=== PATIENT | female | born 1950 | race Caucasian/White ===

== ENCOUNTER → 2017-12-29 | Outpatient (CLI) | payer MEDICARE, MEDICAID ==
[~2017-12-29] MED LIST: DIATR MEGLU/DIATRIZOATE SOLN 120ML ONE
== END | disposition home or self-care (01) ==
LOC: RAD 09:22
PROVIDERS: ATTEND Surgery
DX: K57.30 Diverticulosis of large intestine without perforation or abscess without bleeding (principal)
CPT/HCPCS: 74270; Q9963

== ENCOUNTER 2018-02-02 05:53 | Inpatient (IN) | payer MEDICARE, MEDICAID ==
[2018-02-02] VITALS (28 sets, daily range): BP systolic 112–140; BP diastolic 53–99
[~2018-02-02] VITALS: Ht 149.9 cm; Wt 96.7 kg
[2018-02-02] MEDS ORDERED: LACTATED RINGERS 1,000 ML IV SCH (06:30)
[2018-02-02] MEDS ORDERED: BACITRACIN 50,000 UNITS/VIAL ONE (07:07)
[2018-02-02] MEDS ORDERED: BUPIVACAINE HCL 0.5% (5MG/ML) 50ML ONE (07:07)
[2018-02-02] MEDS ORDERED: PROPOFOL 200MG/20ML VIAL IV ONE (07:12)
[2018-02-02] MEDS ORDERED: FENTANYL CITRATE/PF 50MCG/ML 5ML VIAL ONE (07:12)
[2018-02-02] MEDS ORDERED: GLYCOPYRROLATE 0.2 MG/ML 2ML VIAL ONE (07:13)
[2018-02-02] MEDS ORDERED: ONDANSETRON HCL 4MG/2ML INJ IV PRN (07:30)
[2018-02-02] MEDS ORDERED: FENTANYL CITRATE/PF 50MCG/ML 2ML VIAL IV PRN (07:30)
[2018-02-02] MEDS ORDERED: HYDROMORPHONE HCL/PF 2MG/ML CPJ IV PRN (07:30)
[2018-02-02] MEDS ORDERED: LEVOFLOXACIN 500MG PREMIX 100 ML IV ONE (07:38)
[2018-02-02] MEDS ORDERED: NEOSTIGMINE METHYLSULFATE 1MG/ML 10 ML VIAL ONE (07:59)
[2018-02-02 08:01] LABS: CLARITY URINE CLEAR (CLEAR); COLOR URINE YELLOW (YELLOW); KETONES URINE TRACE (NEGATIVE); LEUKOCYTE ESTERASE URINE NEGATIVE (NEGATIVE); NITRITE URINE NEGATIVE (NEGATIVE); OCCULT BLOOD URINE TRACE (NEGATIVE); PROTEIN URINE 2+ (NEGATIVE); UROBILINOGEN URINE 0.2 E.U./dL (0.2-1.0)
[2018-02-02] MEDS ORDERED: CLOP75TA16 PO (08:07)
[2018-02-02] MEDS ORDERED: CARV12.545 PO (08:07)
[2018-02-02] MEDS ORDERED: AMIO100T4 PO (08:07)
[2018-02-02] MEDS ORDERED: ESOM40CA53 PO (08:07)
[2018-02-02] MEDS ORDERED: ALBUMIN HUMAN 25GM/500ML (5%) IV ONE (11:45)
[2018-02-02] MEDS: BUPIVACAINE HCL 0.5% 290 ML in ON-Q PM015 DRUG DELIV DEVICE 1 EA IR SCH (12:15)
[2018-02-02] MEDS ORDERED: NOREPINEPHRINE 8 MG in DEXT 5% WATER 492 ML IV PRN ×2 (13:00→13:30)
[2018-02-02 13:01] LABS: BASOPHILS % 0.6 % (0.0-2.0); EOSINOPHILS % 0.2 % (0.0-5.0); HEMATOCRIT. 22.8 % (36.0-48.0); HEMOGLOBIN. 7.4 g/dL (12.0-16.0); LYMPHOCYTES % 7.6 % (20.0-50.0); MEAN CORPUSCULAR HEMOGLOBIN 32.5 pg (28.0-32.0); MEAN CORPUSCULAR VOLUME 100.4 fL (81.0-99.0); MEAN PLATELET VOLUME 7.2 fl (7.4-10.4); MONOCYTES % 4.7 % (2.0-8.0); NEUTROPHILS % 86.9 % (40.0-76.0); PLATELET 59 x1000/uL (130-400); RED BLOOD CELL COUNT 2.27 mill/uL (4.2-5.4); RED CELL DISTRIBUTION WIDTH 19.2 % (11.6-14.6)
[2018-02-02 13:15] LABS: CHLORIDE 117 mEq/L (98-107)
[2018-02-02] MEDS ORDERED: HALOPERIDOL LACTATE 5MG/ML VIAL IM PRN (13:30)
[2018-02-02 13:46] LABS: PLATELET ESTIMATE DECREASED
[2018-02-02] MEDS: CEFAZOLIN 1000MG PREMIX 50 ML IV SCH (20:22)
[2018-02-02] MEDS: METRONIDAZOLE 500 MG PREMIX 100 ML IV SCH (20:23)
[2018-02-02] MEDS: FAMOTIDINE 20MG/2ML VIAL IV SCH (20:23)
[2018-02-02 21:06] LABS: HEMATOCRIT. 28.8 % (36.0-48.0); HEMOGLOBIN. 9.6 g/dL (12.0-16.0); MEAN CORPUSCULAR HEMOGLOBIN 31.3 pg (28.0-32.0); MEAN CORPUSCULAR VOLUME 93.5 fL (81.0-99.0); MEAN PLATELET VOLUME 7.8 fl (7.4-10.4); PLATELET 82 x1000/uL (130-400); RED BLOOD CELL COUNT 3.08 mill/uL (4.2-5.4); RED CELL DISTRIBUTION WIDTH 23.5 % (11.6-14.6)
[2018-02-02 21:31] LABS: PLATELET ESTIMATE DECREASED
[2018-02-02] MEDS: DEXT 5%/0.45% NACL 1000ML 1,000 ML IV SCH (23:22)
[2018-02-02 23:24] LABS: HEMATOCRIT 30.8 % (36.0-48.0); HEMOGLOBIN 10.3 g/dL (12.0-16.0)
[2018-02-03] VITALS (65 sets, daily range): BP systolic 98–160; BP diastolic 43–129
[2018-02-03 03:46] LABS: HEMOGLOBIN. 10.3 g/dL (12.0-16.0); MEAN CORPUSCULAR HEMOGLOBIN 30.9 pg (28.0-32.0); MEAN PLATELET VOLUME 8.1 fl (7.4-10.4); PLATELET 86 x1000/uL (130-400); RED BLOOD CELL COUNT 3.34 mill/uL (4.2-5.4); RED CELL DISTRIBUTION WIDTH 22.9 % (11.6-14.6)
[2018-02-03 03:49] LABS: CHLORIDE 115 mEq/L (98-107)
[2018-02-03] MEDS: CEFAZOLIN 1000MG PREMIX 50 ML IV SCH ×3 (04:00→20:00)
[2018-02-03] MEDS: METRONIDAZOLE 500 MG PREMIX 100 ML IV SCH ×2 (04:12→12:58)
[2018-02-03 06:58] LABS: PLATELET ESTIMATE DECREASED
[2018-02-03 08:50] LABS: HEMATOCRIT 29.6 % (36.0-48.0)
[2018-02-03] MEDS: FAMOTIDINE 20MG/2ML VIAL IV SCH ×2 (09:22→23:46)
[2018-02-03] MEDS: DEXT 5%/0.45% NACL 1000ML 1,000 ML IV SCH ×2 (09:25→17:00)
[2018-02-03] MEDS: BUPIVACAINE HCL 0.5% 290 ML in ON-Q PM015 DRUG DELIV DEVICE 1 EA IR SCH (10:30)
[2018-02-03 12:15] LABS: HEMATOCRIT 29.2 % (36.0-48.0); HEMOGLOBIN 9.9 g/dL (12.0-16.0)
[2018-02-03 16:40] LABS: HEMATOCRIT 29.4 % (36.0-48.0)
[2018-02-03 21:57] LABS: HEMATOCRIT 29.5 % (36.0-48.0)
[2018-02-04] VITALS (24 sets, daily range): BP systolic 103–148; BP diastolic 52–90
[2018-02-04] MEDS: DEXT 5%/0.45% NACL 1000ML 1,000 ML IV SCH ×5 (01:06→16:46)
[2018-02-04] MEDS: FAMOTIDINE 20MG/2ML VIAL IV SCH ×3 (01:09→21:45)
[2018-02-04 05:47] LABS: CHLORIDE 110 mEq/L (98-107)
[2018-02-04 07:52] LABS: HEMATOCRIT. 28.7 % (36.0-48.0); HEMOGLOBIN. 9.7 g/dL (12.0-16.0); MEAN CORPUSCULAR HEMOGLOBIN 31.1 pg (28.0-32.0); MEAN CORPUSCULAR VOLUME 92.3 fL (81.0-99.0); MEAN PLATELET VOLUME 8.3 fl (7.4-10.4); PLATELET 90 x1000/uL (130-400); RED BLOOD CELL COUNT 3.11 mill/uL (4.2-5.4)
[2018-02-04] MEDS ORDERED: KCL 10MEQ/50ML PREMIX 50 ML IV NR ×2 (09:10→10:15)
[2018-02-04] MEDS: BUPIVACAINE HCL 0.5% 290 ML in ON-Q PM015 DRUG DELIV DEVICE 1 EA IR SCH (10:30)
[2018-02-04 11:05] LABS: NUCLEATED RED BLOOD CELLS 1 /100 WBC
[2018-02-04 11:06] LABS: PLATELET ESTIMATE DECREASED
[2018-02-04] MEDS ORDERED: METOPROLOL TARTRATE 5MG/5ML VIAL IV NR (11:30)
[2018-02-04] MEDS: MORPHINE SULFATE 4 MG/ML CPJ (NOT FOR IM USE) IV PRN (16:46)
[2018-02-04] MEDS: METOPROLOL TARTRATE 5MG/5ML VIAL IV SCH (17:33)
[2018-02-05] VITALS (21 sets, daily range): BP systolic 87–133; BP diastolic 41–94
[2018-02-05] MEDS: METOPROLOL TARTRATE 5MG/5ML VIAL IV SCH ×5 (00:07→20:11)
[2018-02-05] MEDS: DEXT 5%/0.45% NACL 1000ML 1,000 ML IV SCH ×3 (02:14→22:53)
[2018-02-05 05:35] LABS: HEMATOCRIT. 29.7 % (36.0-48.0); HEMOGLOBIN. 9.9 g/dL (12.0-16.0); MEAN CORPUSCULAR VOLUME 93.4 fL (81.0-99.0); MEAN PLATELET VOLUME 8.1 fl (7.4-10.4); PLATELET 98 x1000/uL (130-400); RED BLOOD CELL COUNT 3.19 mill/uL (4.2-5.4); RED CELL DISTRIBUTION WIDTH 22.7 % (11.6-14.6)
[2018-02-05 05:43] LABS: CHLORIDE 109 mEq/L (98-107)
[2018-02-05] MEDS: MORPHINE SULFATE 4 MG/ML CPJ (NOT FOR IM USE) IV PRN ×3 (07:53→22:44)
[2018-02-05] MEDS: FAMOTIDINE 20MG/2ML VIAL IV SCH ×2 (07:54→20:11)
[2018-02-05 08:51] LABS: LYMPHOCYTES % 7.8 % (20.0-50.0); NEUTROPHILS % 84.7 % (40.0-76.0)
[2018-02-05 08:52] LABS: BASOPHILS % 0.4 % (0.0-2.0); EOSINOPHILS % 1.1 % (0.0-5.0)
[2018-02-05] MEDS: BUPIVACAINE HCL 0.5% 290 ML in ON-Q PM015 DRUG DELIV DEVICE 1 EA IR SCH (10:30)
[2018-02-05] MEDS: ONDANSETRON HCL 4MG/2ML INJ IV PRN (12:32)
[2018-02-05] MEDS ORDERED: FUROSEMIDE 40MG/4ML VIAL IVP SCH (14:45)
[2018-02-06] VITALS (12 sets, daily range): BP systolic 94–153; BP diastolic 54–99
[2018-02-06] MEDS: METOPROLOL TARTRATE 5MG/5ML VIAL IV SCH ×7 (00:05→23:44)
[2018-02-06 06:48] LABS: BASOPHILS % 0.4 % (0.0-2.0); EOSINOPHILS % 1.2 % (0.0-5.0); HEMATOCRIT. 30.4 % (36.0-48.0); HEMOGLOBIN. 10.1 g/dL (12.0-16.0); LYMPHOCYTES % 12.1 % (20.0-50.0); MEAN CORPUSCULAR HEMOGLOBIN 31.1 pg (28.0-32.0); MEAN CORPUSCULAR VOLUME 93.3 fL (81.0-99.0); MEAN PLATELET VOLUME 8.1 fl (7.4-10.4); MONOCYTES % 8.7 % (2.0-8.0); NEUTROPHILS % 77.6 % (40.0-76.0); PLATELET 117 x1000/uL (130-400); RED BLOOD CELL COUNT 3.25 mill/uL (4.2-5.4); RED CELL DISTRIBUTION WIDTH 22.7 % (11.6-14.6)
[2018-02-06 07:12] LABS: CHLORIDE 107 mEq/L (98-107)
[2018-02-06] MEDS: FAMOTIDINE 20MG/2ML VIAL IV SCH ×2 (08:06→20:14)
[2018-02-06 09:09] LABS: PLATELET ESTIMATE DECREASED
[2018-02-06] MEDS: DEXT 5%/0.45% NACL 1000ML 1,000 ML IV SCH ×2 (09:31→21:34)
[2018-02-06] MEDS: MORPHINE SULFATE 4 MG/ML CPJ (NOT FOR IM USE) IV PRN ×3 (11:28→23:48)
[2018-02-07] VITALS (12 sets, daily range): BP systolic 106–150; BP diastolic 64–100
[2018-02-07] MEDS: METOPROLOL TARTRATE 5MG/5ML VIAL IV SCH ×5 (04:26→23:33)
[2018-02-07 06:31] LABS: BASOPHILS % 0.3 % (0.0-2.0); EOSINOPHILS % 1.3 % (0.0-5.0); HEMATOCRIT. 31.3 % (36.0-48.0); HEMOGLOBIN. 10.5 g/dL (12.0-16.0); LYMPHOCYTES % 10.8 % (20.0-50.0); MEAN CORPUSCULAR HEMOGLOBIN 31.7 pg (28.0-32.0); MEAN CORPUSCULAR VOLUME 94.6 fL (81.0-99.0); MONOCYTES % 11.4 % (2.0-8.0); NEUTROPHILS % 76.2 % (40.0-76.0); PLATELET 127 x1000/uL (130-400); RED BLOOD CELL COUNT 3.31 mill/uL (4.2-5.4); RED CELL DISTRIBUTION WIDTH 22.2 % (11.6-14.6)
[2018-02-07 06:33] LABS: CHLORIDE 106 mEq/L (98-107)
[2018-02-07] MEDS: DEXT 5%/0.45% NACL 1000ML 1,000 ML IV SCH ×2 (08:05→20:21)
[2018-02-07] MEDS: FAMOTIDINE 20MG/2ML VIAL IV SCH ×2 (08:07→20:23)
[2018-02-07] MEDS: MORPHINE SULFATE 4 MG/ML CPJ (NOT FOR IM USE) IV PRN (23:14)
[2018-02-08] VITALS (13 sets, daily range): BP systolic 98–136; BP diastolic 46–98
[2018-02-08 05:49] LABS: BASOPHILS % 0.4 % (0.0-2.0); EOSINOPHILS % 1.7 % (0.0-5.0); HEMATOCRIT. 32.5 % (36.0-48.0); HEMOGLOBIN. 10.6 g/dL (12.0-16.0); LYMPHOCYTES % 12.2 % (20.0-50.0); MEAN CORPUSCULAR VOLUME 94.8 fL (81.0-99.0); MEAN PLATELET VOLUME 7.8 fl (7.4-10.4); MONOCYTES % 12.1 % (2.0-8.0); NEUTROPHILS % 73.6 % (40.0-76.0); PLATELET 129 x1000/uL (130-400); RED BLOOD CELL COUNT 3.43 mill/uL (4.2-5.4); RED CELL DISTRIBUTION WIDTH 21.9 % (11.6-14.6)
[2018-02-08] MEDS: METOPROLOL TARTRATE 5MG/5ML VIAL IV SCH (05:52)
[2018-02-08 07:15] LABS: CHLORIDE 106 mEq/L (98-107)
[2018-02-08] MEDS: FAMOTIDINE 20MG/2ML VIAL IV SCH ×2 (09:22→22:32)
[2018-02-08] MEDS: DEXT 5%/0.45% NACL 1000ML 1,000 ML IV SCH (09:23)
[2018-02-08] MEDS ORDERED: POTASSIUM CHLORIDE 20MEQ/PACKET PO NR (10:00)
[2018-02-08] MEDS: CARVEDILOL 12.5MG TABLET PO SCH ×2 (12:12→22:32)
[2018-02-08] MEDS: AMIODARONE HCL 200 MG TABLET PO SCH (12:12)
[2018-02-08] MEDS: ONDANSETRON HCL 4MG/2ML INJ IV PRN ×2 (16:43→22:32)
[2018-02-08] MEDS: MORPHINE SULFATE 4 MG/ML CPJ (NOT FOR IM USE) IV PRN ×2 (18:22→22:33)
[2018-02-09] VITALS (16 sets, daily range): BP systolic 96–142; BP diastolic 29–96
[2018-02-09 07:28] LABS: BASOPHILS % 0.2 % (0.0-2.0); EOSINOPHILS % 1.3 % (0.0-5.0); HEMATOCRIT. 32.9 % (36.0-48.0); HEMOGLOBIN. 10.8 g/dL (12.0-16.0); MEAN CORPUSCULAR HEMOGLOBIN 30.8 pg (28.0-32.0); MEAN CORPUSCULAR VOLUME 94.2 fL (81.0-99.0); MEAN PLATELET VOLUME 7.7 fl (7.4-10.4); MONOCYTES % 8.8 % (2.0-8.0); NEUTROPHILS % 80.7 % (40.0-76.0); PLATELET 148 x1000/uL (130-400); RED CELL DISTRIBUTION WIDTH 21.6 % (11.6-14.6)
[2018-02-09] MEDS: AMIODARONE HCL 200 MG TABLET PO SCH (07:53)
[2018-02-09] MEDS: ONDANSETRON HCL 4MG/2ML INJ IV PRN (07:53)
[2018-02-09] MEDS: FAMOTIDINE 20MG/2ML VIAL IV SCH ×2 (07:53→21:13)
[2018-02-09] MEDS: CARVEDILOL 12.5MG TABLET PO SCH (07:53)
[2018-02-09 08:25] LABS: CHLORIDE 105 mEq/L (98-107)
[2018-02-09] MEDS ORDERED: METOPROLOL TARTRATE 5MG/5ML VIAL IV SCH (15:45)
[2018-02-09] MEDS: METOPROLOL TARTRATE 5MG/5ML VIAL IV SCH (17:36)
[2018-02-10 04:13] VITALS: BP 99/55
[2018-02-10] MEDS: METOPROLOL TARTRATE 5MG/5ML VIAL IV SCH ×4 (06:00→18:00)
[2018-02-10 06:52] LABS: HEMATOCRIT. 32.4 % (36.0-48.0); HEMOGLOBIN. 10.9 g/dL (12.0-16.0); MEAN CORPUSCULAR HEMOGLOBIN 31.6 pg (28.0-32.0); MEAN CORPUSCULAR VOLUME 93.9 fL (81.0-99.0); MEAN PLATELET VOLUME 7.7 fl (7.4-10.4); PLATELET 135 x1000/uL (130-400); RED BLOOD CELL COUNT 3.45 mill/uL (4.2-5.4); RED CELL DISTRIBUTION WIDTH 21.8 % (11.6-14.6)
[2018-02-10 07:36] LABS: CHLORIDE 108 mEq/L (98-107)
[2018-02-10 08:42] VITALS: BP 95/51
[2018-02-10] MEDS: FAMOTIDINE 20MG/2ML VIAL IV SCH ×2 (09:24→21:26)
[2018-02-10 10:11] LABS: NUCLEATED RED BLOOD CELLS 1 /100 WBC
[2018-02-10 10:13] LABS: PLATELET ESTIMATE NORMAL
[2018-02-10 12:00] VITALS: BP 134/108
[2018-02-10] MEDS ORDERED: KCL 20MEQ/100ML PREMIX 100 ML IV SCH (14:00)
[2018-02-10 14:58] VITALS: BP 105/62
[2018-02-10 16:24] VITALS: BP 114/67
[2018-02-10] MEDS ORDERED: METOPROLOL TARTRATE 5MG/5ML VIAL IV SCH (18:00)
[2018-02-10 20:00] VITALS: BP 107/75
[2018-02-11] VITALS: BP 100/53
[2018-02-11 04:00] VITALS: BP 114/66
[2018-02-11] MEDS: METOPROLOL TARTRATE 5MG/5ML VIAL IV SCH ×3 (05:06→12:54)
[2018-02-11 07:13] LABS: CHLORIDE 108 mEq/L (98-107)
[2018-02-11 07:23] LABS: HEMOGLOBIN. 11.7 g/dL (12.0-16.0); MEAN CORPUSCULAR HEMOGLOBIN 31.7 pg (28.0-32.0); MEAN PLATELET VOLUME 7.9 fl (7.4-10.4); PLATELET 153 x1000/uL (130-400); RED BLOOD CELL COUNT 3.68 mill/uL (4.2-5.4); RED CELL DISTRIBUTION WIDTH 22.3 % (11.6-14.6)
[2018-02-11 08:00] VITALS: BP 104/55
[2018-02-11 09:00] VITALS: BP 104/55
[2018-02-11] MEDS: FAMOTIDINE 20MG/2ML VIAL IV SCH (09:10)
[2018-02-11 11:26] LABS: PLATELET ESTIMATE NORMAL
[2018-02-11 12:00] VITALS: BP 140/55
[2018-02-11] MEDS ORDERED: CARVEDILOL 6.25 MG TABLET PO SCH (14:29)
[2018-02-11] MEDS ORDERED: METOPROLOL TARTRATE 5MG/5ML VIAL IV PRN (14:30)
[2018-02-11 15:46] VITALS: BP 108/72
[2018-02-11] MEDS ORDERED: KCL 20MEQ/100ML PREMIX 100 ML IV NR (16:00)
[2018-02-11] MEDS ORDERED: POTASSIUM CHLORIDE 20MEQ TABLET SR PO NR (17:00)
== END 2018-02-11 18:30 | disposition home or self-care (01) | DRG 330 ==
LOC: ORIP 05:53 → CVICU 18:13 → 3WST 02-05 17:47 → 6WST 02-09 23:47
PROVIDERS: ADMIT Surgery; ATTEND Surgery
PROC: 02HV33Z Insertion of Infusion Device into Superior Vena Cava, Percutaneous Approach (ICD-10-PCS; 2018-02-02)
PROC: 30233L1 Transfusion of Nonautologous Fresh Plasma into Peripheral Vein, Percutaneous Approach (ICD-10-PCS; 2018-02-02)
PROC: 30233N1 Transfusion of Nonautologous Red Blood Cells into Peripheral Vein, Percutaneous Approach (ICD-10-PCS; 2018-02-02)
PROC: 30233R1 Transfusion of Nonautologous Platelets into Peripheral Vein, Percutaneous Approach (ICD-10-PCS; 2018-02-02)
PROC: 30233K1 Transfusion of Nonautologous Frozen Plasma into Peripheral Vein, Percutaneous Approach (ICD-10-PCS; 2018-02-02)
PROC: 0DBN0ZZ Excision of Sigmoid Colon, Open Approach (ICD-10-PCS; principal; 2018-02-07)
DX: K57.92 Diverticulitis of intestine, part unspecified, without perforation or abscess without bleeding (principal); K43.3 Parastomal hernia with obstruction, without gangrene; I48.1 Persistent atrial fibrillation; K56.7 Ileus, unspecified; K82.8 Other specified diseases of gallbladder; N73.6 Female pelvic peritoneal adhesions (postinfective); E87.6 Hypokalemia; D64.9 Anemia, unspecified; D69.6 Thrombocytopenia, unspecified; I11.9 Hypertensive heart disease without heart failure; Z93.3 Colostomy status
CPT/HCPCS: 36415; 71045; 74018; 80048; 80051; 82962; 83735; 85014; 85018; 86850; 86900; 86920; 86927; 88304; 88305; 88307; 93005; 93306; 97116; 97162; 97530; A6261; C1893; J0690; J1940; J1956; J2270; J2405; J2704; J2710; J3010; J3480; J3490; J7030; J7040; J7050; J7060; J7120; P9016; P9017; P9034; P9041

== ENCOUNTER 2021-12-22 06:47 | Inpatient (IN) | payer MEDICARE, MEDICAID ==
[~2021-12-22] VITALS: Ht 149.9 cm; Wt 64.3 kg
[~2021-12-22 06:47] MED LIST changes: +AMIO100T4 PO; +ATOR20TA65 PO; +BUSP10TA3 PO; +CARV12.545 PO; +CHOL200026 PO; -DIATR MEGLU/DIATRIZOATE SOLN 120ML ONE; +FURO40TA5 PO; +LACTATED RINGERS 1,000 ML IV SCH; +LEVO100T9 PO; +SPIR25TA6 PO; +T3 PO; +XAR15 PO
[2021-12-22] MEDS ORDERED: BUPIVACAINE HCL/PF 0.5% (5MG/ML) 10ML ONE (07:07)
[2021-12-22] MEDS ORDERED: SKIN ADHESIVE 0.7 GM EA TOP ONE (07:07)
[2021-12-22] MEDS ORDERED: PROPOFOL 200MG/20ML VIAL IV ONE (07:58)
[2021-12-22] MEDS ORDERED: ROCURONIUM BROMIDE 10MG/ML VIAL 5ML IV ONE (07:58)
[2021-12-22] MEDS ORDERED: FENTANYL CITRATE/PF 50MCG/ML 2ML VIAL ONE (07:58)
[2021-12-22] MEDS ORDERED: PHENYLEPHRINE HCL 10 MG/ML 1ML (IV VIAL) IV ONE (08:40)
[2021-12-22] MEDS ORDERED: EPHEDRINE SULFATE 50MG/ML VIAL ONE (09:19)
[2021-12-22] MEDS ORDERED: GLYCOPYRROLATE 0.2 MG/ML 2ML VIAL ONE (09:49)
[2021-12-22] MEDS ORDERED: NEOSTIGMINE METHYLSULFATE 1MG/ML 10 ML VIAL ONE (09:49)
[2021-12-22] MEDS ORDERED: MORPHINE SULFATE 4 MG/ML CPJ (NOT FOR IM USE) IV PRN (10:30)
[2021-12-22] MEDS ORDERED: HYDROCODONE/ACETAMINOPHEN 5/325MG TABLET PO PRN (10:30)
[2021-12-22] MEDS ORDERED: MORPHINE SULFATE 2 MG/ML CPJ (NOT FOR IM USE) IV PRN (10:30)
[2021-12-22] MEDS ORDERED: ONDANSETRON HCL 4MG/2ML INJ IV PRN ×3 (10:30→11:30)
[2021-12-22] MEDS ORDERED: FENTANYL CITRATE/PF 50MCG/ML 2ML VIAL IV PRN (11:00)
[2021-12-22] MEDS ORDERED: HYDROMORPHONE HCL/PF 2MG/ML CPJ IV PRN (11:00)
[2021-12-22] MEDS ORDERED: MAGNESIUM/ALUMINUM HYDROXIDE/SIMETHICONE 30ML UDC PO PRN (11:30)
[2021-12-22] MEDS ORDERED: ACETAMINOPHEN 325MG TABLET PO PRN ×2 (11:30)
[2021-12-22] MEDS ORDERED: IPRATROPIUM/ALBUTEROL 0.5-3(2.5)MG/3ML NEB NEB PRN (11:30)
[2021-12-22] MEDS ORDERED: CLONIDINE 0.1MG TABLET PO PRN (11:30)
[2021-12-22] MEDS ORDERED: GUAIFENESIN 200MG/10ML SUGAR FREE UDC PO PRN (11:30)
[2021-12-22] MEDS ORDERED: DOCUSATE SODIUM 100MG CAPSULE PO PRN (11:30)
[2021-12-22] MEDS ORDERED: ZOLPIDEM TARTRATE 5MG TABLET PO PRN (11:30)
[2021-12-22] MEDS ORDERED: ALBUMIN HUMAN 12.5GM/50ML (25%) IV NR (11:30)
[2021-12-22] MEDS ORDERED: NITROGLYCERIN 0.4MG TABLET SL SL PRN (11:30)
[2021-12-22] MEDS ORDERED: NALOXONE HCL 0.4MG/ML VIAL IV PRN (16:15)
[2021-12-22] MEDS: DEXT 5%/0.45% NACL KCL 20MEQ/L 1,000 ML IV SCH ×2 (17:10→19:33)
[2021-12-22 19:30] VITALS: BP 90/53
[2021-12-22 20:00] VITALS: BP 89/53
[2021-12-22] MEDS: CARVEDILOL 3.125 MG TABLET PO SCH (20:26)
[2021-12-22] MEDS: ATORVASTATIN CALCIUM 20MG TABLET PO SCH (20:26)
[2021-12-23] VITALS: BP 81/50
[2021-12-23 01:00] LABS: T4 FREE 0.81 ng/dL (0.76-1.46)
[2021-12-23 02:41] LABS: FOLIC ACID (FOLATE) SERUM 6.9 ng/mL (>5.38)
[2021-12-23] MEDS: DEXT 5%/0.45% NACL KCL 20MEQ/L 1,000 ML IV SCH ×2 (03:03→17:16)
[2021-12-23] MEDS: HYDROCODONE/ACETAMINOPHEN 5/325MG TABLET PO PRN ×2 (03:03→20:54)
[2021-12-23 04:00] VITALS: BP 89/49
[2021-12-23 06:29] LABS: HEMATOCRIT. 27.4 % (36.0-48.0); HEMOGLOBIN. 9.4 g/dL (12.0-16.0); MEAN CORPUSCULAR HEMOGLOBIN 37.9 pg (28.0-32.0); MEAN PLATELET VOLUME 8.3 fl (7.4-10.4); PLATELET 125 x1000/uL (130-400); RED BLOOD CELL COUNT 2.47 mill/uL (4.2-5.4); RED CELL DISTRIBUTION WIDTH 19.9 % (11.6-14.6)
[2021-12-23 07:32] VITALS: BP 89/53
[2021-12-23 07:48] LABS: CHLORIDE 104 mEq/L (98-107)
[2021-12-23 07:52] LABS: PHOSPHORUS 2.3 mg/dL (2.5-4.9)
[2021-12-23] MEDS: CARVEDILOL 3.125 MG TABLET PO SCH (07:52)
[2021-12-23] MEDS: AMIODARONE HCL 200 MG TABLET PO SCH (07:53)
[2021-12-23] MEDS: LEVOTHYROXINE SODIUM 100MCG TABLET PO SCH (07:59)
[2021-12-23] MEDS: PANTOPRAZOLE SODIUM 40 MG/VIAL IV SCH (08:18)
[2021-12-23] MEDS: ENOXAPARIN 40MG/0.4ML SYR SUBCUT SCH (11:27)
[2021-12-23 12:00] VITALS: BP 82/52
[2021-12-23 14:07] LABS: PLATELET ESTIMATE NORMAL
[2021-12-23 16:00] VITALS: BP 102/49
[2021-12-23 20:00] VITALS: BP 107/50
[2021-12-23] MEDS: ATORVASTATIN CALCIUM 20MG TABLET PO SCH (20:54)
[2021-12-24] VITALS: BP 107/52
[2021-12-24] MEDS: DEXT 5%/0.45% NACL KCL 20MEQ/L 1,000 ML IV SCH ×2 (02:01→12:30)
[2021-12-24 04:00] VITALS: BP 97/54
[2021-12-24] MEDS: HYDROCODONE/ACETAMINOPHEN 5/325MG TABLET PO PRN (04:01)
[2021-12-24 08:00] VITALS: BP 94/52
[2021-12-24] MEDS: AMIODARONE HCL 200 MG TABLET PO SCH (08:43)
[2021-12-24] MEDS: ENOXAPARIN 40MG/0.4ML SYR SUBCUT SCH (08:43)
[2021-12-24] MEDS: LEVOTHYROXINE SODIUM 100MCG TABLET PO SCH (08:43)
[2021-12-24] MEDS: PANTOPRAZOLE SODIUM 40 MG/VIAL IV SCH (09:34)
[2021-12-24] MEDS ORDERED: MAGNESIUM OXIDE 400MG TABLET PO SCH (11:45)
[2021-12-24] MEDS ORDERED: POTASSIUM-SODIUM PHOSPHATE POWDER PACKET PO ONE (11:45)
[2021-12-24 12:00] VITALS: BP 91/44
[2021-12-24 16:00] VITALS: BP 97/55
[2021-12-24 16:16] VITALS: BP 97/55
[2021-12-25] MEDS ORDERED: LEVOTHYROXINE SODIUM 100MCG TABLET PO SCH (07:40)
== END 2021-12-24 17:45 | disposition home or self-care (01) | DRG 354 ==
LOC: OR 06:47 → 7WST 19:34
PROVIDERS: ADMIT Surgery; ATTEND Surgery
PROC: 0WUF0JZ Supplement Abdominal Wall with Synthetic Substitute, Open Approach (ICD-10-PCS; principal; 2021-12-22)
PROC: 0D9W3ZZ Drainage of Peritoneum, Percutaneous Approach (ICD-10-PCS; 2021-12-22)
DX: K43.2 Incisional hernia without obstruction or gangrene (principal); E44.1 Mild protein-calorie malnutrition; I48.11 Longstanding persistent atrial fibrillation; I50.32 Chronic diastolic (congestive) heart failure; K40.90 Unilateral inguinal hernia, without obstruction or gangrene, not specified as recurrent; E03.9 Hypothyroidism, unspecified; I11.0 Hypertensive heart disease with heart failure; Z20.822 Contact with and (suspected) exposure to COVID-19; Z93.3 Colostomy status
CPT/HCPCS: 36415; 80053; 80061; 82607; 82746; 83036; 83540; 83550; 83735; 84100; 84439; 84443; 85025; 87426; 93005; 93306; 93970; 97116; 97162; 97166; 97530; C1781; C9113; C9803; J1650; J2370; J2704; J2710; J3010; J3490; J7030; P9047

== ENCOUNTER 2021-12-29 10:17 | Inpatient (IN) | payer MEDICARE, MEDICAID ==
[~2021-12-29] VITALS: Ht 149.9 cm; Wt 69.4 kg
[~2021-12-29 10:17] MED LIST changes: -LACTATED RINGERS 1,000 ML IV SCH
[2021-12-29 12:00] VITALS: BP_SYST 122; BP_SYST 125; BP_DIAS 70; BP_DIAS 71
[2021-12-29] MEDS ORDERED: ONDANSETRON HCL 4MG/2ML INJ IV PRN (13:15)
[2021-12-29 16:00] VITALS: BP 107/60
[2021-12-29 16:32] LABS: HEMATOCRIT. 31.6 % (36.0-48.0); HEMOGLOBIN. 10.7 g/dL (12.0-16.0); MEAN CORPUSCULAR HEMOGLOBIN 34.5 pg (28.0-32.0); MEAN PLATELET VOLUME 8.4 fl (7.4-10.4); PLATELET 143 x1000/uL (130-400); RED CELL DISTRIBUTION WIDTH 23.3 % (11.6-14.6)
[2021-12-29 16:36] LABS: CHLORIDE 105 mEq/L (98-107)
[2021-12-29 17:10] LABS: NUCLEATED RED BLOOD CELLS 2 /100 WBC; PLATELET ESTIMATE NORMAL
[2021-12-29 20:00] VITALS: BP 116/74
[2021-12-29] MEDS: ACETAMINOPHEN 325MG TABLET PO PRN (21:17)
[2021-12-29] MEDS: ENOXAPARIN 60MG/0.6ML SYR SUBCUT SCH (21:17)
[2021-12-29] MEDS: LACTULOSE 20G/30ML UDC PO SCH (21:17)
[2021-12-30] VITALS: BP 94/58
[2021-12-30 04:00] VITALS: BP 103/56
[2021-12-30] MEDS: LACTULOSE 20G/30ML UDC PO SCH ×2 (05:41→15:08)
[2021-12-30 07:02] LABS: HEMATOCRIT. 33.1 % (36.0-48.0); HEMOGLOBIN. 11.3 g/dL (12.0-16.0); MEAN CORPUSCULAR HEMOGLOBIN 35.1 pg (28.0-32.0); MEAN PLATELET VOLUME 8.3 fl (7.4-10.4); PLATELET 128 x1000/uL (130-400); RED BLOOD CELL COUNT 3.22 mill/uL (4.2-5.4); RED CELL DISTRIBUTION WIDTH 23.8 % (11.6-14.6)
[2021-12-30 07:17] LABS: INR 1.2
[2021-12-30 08:00] VITALS: BP 99/95
[2021-12-30 08:40] LABS: CHLORIDE 106 mEq/L (98-107)
[2021-12-30] MEDS: ENOXAPARIN 60MG/0.6ML SYR SUBCUT SCH ×2 (09:30→20:11)
[2021-12-30 12:00] VITALS: BP 106/55
[2021-12-30 16:00] VITALS: BP 107/72
[2021-12-30 17:50] LABS: PLATELET ESTIMATE DECREASED
[2021-12-30 20:39] LABS: T4 FREE 1.12 ng/dL (0.76-1.46)
[2021-12-30 21:10] LABS: VITAMIN B12 SERUM > 2000.0 pg/mL (211-911)
[2021-12-31 00:57] VITALS: BP 115/62
[2021-12-31 07:28] LABS: HEMOGLOBIN. 11.3 g/dL (12.0-16.0); MEAN CORPUSCULAR HEMOGLOBIN 34.6 pg (28.0-32.0); MEAN CORPUSCULAR VOLUME 104.7 fL (81.0-99.0); MEAN PLATELET VOLUME 8.5 fl (7.4-10.4); PLATELET 116 x1000/uL (130-400); RED BLOOD CELL COUNT 3.25 mill/uL (4.2-5.4); RED CELL DISTRIBUTION WIDTH 24.3 % (11.6-14.6)
[2021-12-31 07:32] LABS: CHLORIDE 105 mEq/L (98-107)
[2021-12-31 08:00] VITALS: BP 109/55
[2021-12-31] MEDS: LACTULOSE 20G/30ML UDC PO SCH (09:27)
[2021-12-31] MEDS: LEVOTHYROXINE SODIUM 100MCG TABLET PO SCH (09:27)
[2021-12-31] MEDS: ENOXAPARIN 60MG/0.6ML SYR SUBCUT SCH (09:28)
[2021-12-31] MEDS: FOLIC ACID 1MG TABLET PO SCH (09:28)
[2021-12-31 16:00] VITALS: BP 102/63
[2021-12-31 20:00] VITALS: BP 107/67
[2021-12-31] MEDS ORDERED: IOHEXOL-300 100 ML BOTTLE ONE (20:38)
[2021-12-31 21:24] LABS: NUCLEATED RED BLOOD CELLS 1 /100 WBC; PLATELET ESTIMATE DECREASED
[2022-01-01] VITALS (7 sets, daily range): BP systolic 91–137; BP diastolic 50–59
[2022-01-01] MEDS: LACTULOSE 20G/30ML UDC PO SCH (08:30)
[2022-01-01] MEDS: LEVOTHYROXINE SODIUM 100MCG TABLET PO SCH (08:30)
[2022-01-01] MEDS: FOLIC ACID 1MG TABLET PO SCH (08:30)
[2022-01-01 17:15] LABS: CHLORIDE 99 mEq/L (98-107)
[2022-01-01] MEDS ORDERED: POTASSIUM CHLORIDE 20MEQ TABLET SR PO NR (17:45)
[2022-01-01 18:01] LABS: HEMATOCRIT. 41.4 % (36.0-48.0); HEMOGLOBIN. 12.9 g/dL (12.0-16.0); MEAN CORPUSCULAR HEMOGLOBIN 34.7 pg (28.0-32.0); MEAN CORPUSCULAR VOLUME 111.1 fL (81.0-99.0); MEAN PLATELET VOLUME 8.6 fl (7.4-10.4); PLATELET 92 x1000/uL (130-400); RED BLOOD CELL COUNT 3.72 mill/uL (4.2-5.4); RED CELL DISTRIBUTION WIDTH 24.9 % (11.6-14.6)
[2022-01-01 21:33] LABS: NUCLEATED RED BLOOD CELLS 1 /100 WBC
[2022-01-01 21:34] LABS: PLATELET ESTIMATE DECREASED
[2022-01-02 04:00] VITALS: BP 106/56
[2022-01-02 08:00] VITALS: BP 92/54
[2022-01-02] MEDS: LEVOTHYROXINE SODIUM 100MCG TABLET PO SCH (09:17)
[2022-01-02] MEDS: FOLIC ACID 1MG TABLET PO SCH (09:17)
[2022-01-02] MEDS: LACTULOSE 20G/30ML UDC PO SCH (09:17)
[2022-01-02 12:00] VITALS: BP 102/40
[2022-01-02 12:06] LABS: CHLORIDE 103 mEq/L (98-107)
[2022-01-02 16:00] VITALS: BP 110/66
[2022-01-02 16:13] LABS: HEMATOCRIT. 32.1 % (36.0-48.0); MEAN CORPUSCULAR HEMOGLOBIN 35.7 pg (28.0-32.0); MEAN PLATELET VOLUME 8.6 fl (7.4-10.4); PLATELET 107 x1000/uL (130-400); RED BLOOD CELL COUNT 3.05 mill/uL (4.2-5.4); RED CELL DISTRIBUTION WIDTH 24.8 % (11.6-14.6)
[2022-01-02 16:59] LABS: HEMOGLOBIN. 10.9 g/dL (12.0-16.0); MEAN CORPUSCULAR VOLUME 105.2 fL (81.0-99.0)
[2022-01-02 20:00] VITALS: BP 102/59
[2022-01-02 21:09] LABS: PLATELET ESTIMATE DECREASED
[2022-01-02] MEDS: ACETAMINOPHEN 325MG TABLET PO PRN (22:21)
[2022-01-03] VITALS: BP 110/60
[2022-01-03 04:00] VITALS: BP 99/56
[2022-01-03] MEDS: LEVOTHYROXINE SODIUM 100MCG TABLET PO SCH (06:19)
[2022-01-03 08:00] VITALS: BP 117/75
[2022-01-03] MEDS: LACTULOSE 20G/30ML UDC PO SCH (10:05)
[2022-01-03] MEDS: FOLIC ACID 1MG TABLET PO SCH (10:05)
[2022-01-03 12:00] VITALS: BP 100/66
[2022-01-03 16:00] VITALS: BP 102/59
[2022-01-03 20:00] VITALS: BP 120/60
[2022-01-03] MEDS: ACETAMINOPHEN 325MG TABLET PO PRN (22:59)
[2022-01-04] VITALS: BP 92/63
[2022-01-04 04:00] VITALS: BP 92/67
[2022-01-04 05:47] LABS: CHLORIDE 103 mEq/L (98-107)
[2022-01-04 06:24] LABS: HEMATOCRIT. 31.4 % (36.0-48.0); HEMOGLOBIN. 10.2 g/dL (12.0-16.0); MEAN CORPUSCULAR HEMOGLOBIN 35.6 pg (28.0-32.0); MEAN PLATELET VOLUME 8.3 fl (7.4-10.4); PLATELET 106 x1000/uL (130-400); RED BLOOD CELL COUNT 2.88 mill/uL (4.2-5.4); RED CELL DISTRIBUTION WIDTH 24.7 % (11.6-14.6)
[2022-01-04] MEDS: LEVOTHYROXINE SODIUM 100MCG TABLET PO SCH (06:46)
[2022-01-04 08:00] VITALS: BP 89/57
[2022-01-04] MEDS: LACTULOSE 20G/30ML UDC PO SCH (09:03)
[2022-01-04] MEDS: FOLIC ACID 1MG TABLET PO SCH (09:03)
[2022-01-04 09:48] LABS: PLATELET ESTIMATE SLIGHTLY DECREASED
[2022-01-04] MEDS ORDERED: SODIUM CHLORIDE 0.9% 500 ML IV ONE (10:00)
[2022-01-04] MEDS: MIDODRINE HCL 5MG TABLET PO SCH ×2 (10:00→15:00)
[2022-01-04] MEDS ORDERED: CEFTRIAXONE 1 G PREMIX 50 ML IV SCH (11:00)
[2022-01-04 12:00] VITALS: BP 105/66
[2022-01-04] MEDS ORDERED: CEFTRIAXONE 1,000 MG in DEXTROSE 5% WATER 50 ML IV SCH (13:00)
[2022-01-04 13:32] VITALS: BP 105/66
[2022-01-04 16:00] VITALS: BP 98/65
== END 2022-01-04 18:02 | DRG 441 ==
LOC: 8WST 10:17
PROVIDERS: ADMIT Internal Medicine; ATTEND Internal Medicine
PROC: 4A00X4Z Measurement of Central Nervous Electrical Activity, External Approach (ICD-10-PCS; principal; 2021-12-31)
DX: K72.00 Acute and subacute hepatic failure without coma (principal); E43 Unspecified severe protein-calorie malnutrition; G92.8 Other toxic encephalopathy; G82.50 Quadriplegia, unspecified; I48.11 Longstanding persistent atrial fibrillation; I50.32 Chronic diastolic (congestive) heart failure; N17.9 Acute kidney failure, unspecified; E72.4 Disorders of ornithine metabolism; K56.609 Unspecified intestinal obstruction, unspecified as to partial versus complete obstruction; K74.60 Unspecified cirrhosis of liver; D64.9 Anemia, unspecified; I11.0 Hypertensive heart disease with heart failure; D69.6 Thrombocytopenia, unspecified; R74.01 Elevation of levels of liver transaminase levels; D72.829 Elevated white blood cell count, unspecified; R13.10 Dysphagia, unspecified; R47.1 Dysarthria and anarthria; E03.9 Hypothyroidism, unspecified; R26.9 Unspecified abnormalities of gait and mobility; E53.8 Deficiency of other specified B group vitamins; E78.00 Pure hypercholesterolemia, unspecified; F03.90 Unspecified dementia, unspecified severity, without behavioral disturbance, psychotic disturbance, mood disturbance, and anxiety; K43.2 Incisional hernia without obstruction or gangrene; Z68.30 Body mass index [BMI] 30.0-30.9, adult; Z93.3 Colostomy status
CPT/HCPCS: 36415; 70551; 71045; 74018; 74177; 80048; 80053; 82140; 82607; 82746; 83036; 84439; 84443; 84481; 85025; 92523; 92610; 97116; 97162; 97166; 97530; A6261; C1893; J0696; J1650; J7060; Q9967

== ENCOUNTER 2022-01-04 18:00 | Inpatient (IN) | payer MEDICARE, MEDICAID ==
[~2022-01-04] VITALS: Ht 149.9 cm; Wt 62.6 kg
[2022-01-04] MEDS ORDERED: NA PHOS,M-B/NA PHOS,DI-BA ENEMA 118ML PR PRN (18:45)
[2022-01-04] MEDS ORDERED: SENNOSIDES/DOCUSATE SOD 8.6/50MG TABLET PO PRN (18:45)
[2022-01-04] MEDS ORDERED: ONDANSETRON HCL 4MG/2ML INJ IV PRN (18:45)
[2022-01-04 20:00] VITALS: BP 125/62
[2022-01-04] MEDS: LEVOFLOXACIN 500MG TABLET PO SCH (20:22)
[2022-01-04 20:36] VITALS: BP 125/62
[2022-01-05] MEDS: LEVOTHYROXINE SODIUM 100MCG TABLET PO SCH (06:13)
[2022-01-05 06:16] LABS: HEMATOCRIT. 30.7 % (36.0-48.0); HEMOGLOBIN. 10.1 g/dL (12.0-16.0); MEAN CORPUSCULAR HEMOGLOBIN 35.4 pg (28.0-32.0); MEAN CORPUSCULAR VOLUME 107.6 fL (81.0-99.0); MEAN PLATELET VOLUME 8.6 fl (7.4-10.4); PLATELET 119 x1000/uL (130-400); RED BLOOD CELL COUNT 2.85 mill/uL (4.2-5.4); RED CELL DISTRIBUTION WIDTH 25.1 % (11.6-14.6)
[2022-01-05 07:00] LABS: CHLORIDE 102 mEq/L (98-107)
[2022-01-05 08:00] VITALS: BP 101/63
[2022-01-05] MEDS: LACTULOSE 20G/30ML UDC PO SCH (08:44)
[2022-01-05] MEDS: FOLIC ACID 1MG TABLET PO SCH (08:45)
[2022-01-05] MEDS: MIDODRINE HCL 5MG TABLET PO SCH ×3 (08:45→17:45)
[2022-01-05] MEDS: APIXABAN 2.5 MG TABLET PO SCH ×2 (09:46→17:38)
[2022-01-05] MEDS: LEVOFLOXACIN 500MG TABLET PO SCH (12:44)
[2022-01-05] MEDS: ACETAMINOPHEN 325MG TABLET PO PRN (12:45)
[2022-01-05 18:13] LABS: PLATELET ESTIMATE DECREASED
[2022-01-05 20:00] VITALS: BP 105/54
[2022-01-06] MEDS: ACETAMINOPHEN 325MG TABLET PO PRN (03:31)
[2022-01-06 05:42] LABS: CHLORIDE 103 mEq/L (98-107)
[2022-01-06] MEDS: LEVOTHYROXINE SODIUM 100MCG TABLET PO SCH (06:09)
[2022-01-06 06:13] LABS: TOTAL IRON BINDING CAPACITY 159 ug/dL (250-450)
[2022-01-06 06:19] LABS: HEMATOCRIT. 28.2 % (36.0-48.0); HEMOGLOBIN. 9.2 g/dL (12.0-16.0); MEAN CORPUSCULAR HEMOGLOBIN 35.6 pg (28.0-32.0); MEAN CORPUSCULAR VOLUME 108.8 fL (81.0-99.0); MEAN PLATELET VOLUME 8.6 fl (7.4-10.4); PLATELET 115 x1000/uL (130-400); RED BLOOD CELL COUNT 2.59 mill/uL (4.2-5.4); RED CELL DISTRIBUTION WIDTH 25.2 % (11.6-14.6)
[2022-01-06 06:21] LABS: FERRITIN 1270 ng/mL (10-291)
[2022-01-06 08:00] VITALS: BP 126/60
[2022-01-06] MEDS: FOLIC ACID 1MG TABLET PO SCH (08:53)
[2022-01-06] MEDS: APIXABAN 2.5 MG TABLET PO SCH ×2 (08:53→17:12)
[2022-01-06] MEDS: LACTULOSE 20G/30ML UDC PO SCH (08:56)
[2022-01-06] MEDS: MIDODRINE HCL 5MG TABLET PO SCH ×3 (08:56→17:12)
[2022-01-06 09:53] LABS: PLATELET ESTIMATE SLIGHTLY DECREASED
[2022-01-06] MEDS: LEVOFLOXACIN 500MG TABLET PO SCH (11:39)
[2022-01-06] MEDS: FUROSEMIDE 40MG/4ML VIAL IVP SCH ×2 (13:06→17:25)
[2022-01-06 20:00] VITALS: BP 113/78
[2022-01-07 06:06] LABS: HEMATOCRIT. 26.6 % (36.0-48.0); HEMOGLOBIN. 8.9 g/dL (12.0-16.0); MEAN CORPUSCULAR HEMOGLOBIN 35.7 pg (28.0-32.0); MEAN CORPUSCULAR VOLUME 106.4 fL (81.0-99.0); MEAN PLATELET VOLUME 8.5 fl (7.4-10.4); PLATELET 106 x1000/uL (130-400)
[2022-01-07 06:38] LABS: CHLORIDE 104 mEq/L (98-107)
[2022-01-07] MEDS: LEVOTHYROXINE SODIUM 100MCG TABLET PO SCH (06:56)
[2022-01-07] MEDS: FUROSEMIDE 40MG/4ML VIAL IVP SCH ×2 (07:05→16:49)
[2022-01-07 08:00] VITALS: BP 110/62
[2022-01-07 08:00] LABS: NUCLEATED RED BLOOD CELLS 1 /100 WBC
[2022-01-07 08:01] LABS: PLATELET ESTIMATE SLIGHTLY DECREASED
[2022-01-07] MEDS ORDERED: POTASSIUM CHLORIDE 20MEQ TABLET SR PO NR (10:00)
[2022-01-07] MEDS: FOLIC ACID 1MG TABLET PO SCH (10:07)
[2022-01-07] MEDS: APIXABAN 2.5 MG TABLET PO SCH ×2 (10:07→16:50)
[2022-01-07] MEDS: MIDODRINE HCL 5MG TABLET PO SCH ×3 (10:07→16:50)
[2022-01-07] MEDS: LEVOFLOXACIN 500MG TABLET PO SCH (10:38)
[2022-01-07 20:00] VITALS: BP 104/53
[2022-01-08 06:18] LABS: CHLORIDE 101 mEq/L (98-107)
[2022-01-08] MEDS: FUROSEMIDE 40MG/4ML VIAL IVP SCH (06:45)
[2022-01-08] MEDS: LEVOTHYROXINE SODIUM 100MCG TABLET PO SCH (06:49)
[2022-01-08 08:00] VITALS: BP 91/50
[2022-01-08] MEDS: MIDODRINE HCL 5MG TABLET PO SCH ×3 (09:18→17:35)
[2022-01-08] MEDS: APIXABAN 2.5 MG TABLET PO SCH ×2 (09:18→17:35)
[2022-01-08] MEDS: FOLIC ACID 1MG TABLET PO SCH (09:18)
[2022-01-08] MEDS: ACETAMINOPHEN 325MG TABLET PO PRN (09:18)
[2022-01-08] MEDS: FUROSEMIDE 40MG/4 ML UDC PO SCH ×2 (11:55→17:35)
[2022-01-08] MEDS: POTASSIUM CHLORIDE 20MEQ TABLET SR PO SCH (11:55)
[2022-01-08] MEDS: LEVOFLOXACIN 500MG TABLET PO SCH (11:55)
[2022-01-08 20:00] VITALS: BP 104/56
[2022-01-09] MEDS: LEVOTHYROXINE SODIUM 100MCG TABLET PO SCH (06:30)
[2022-01-09 07:37] LABS: EOSINOPHILS % 1.5 % (0.0-5.0); HEMATOCRIT. 27.3 % (36.0-48.0); HEMOGLOBIN. 9.3 g/dL (12.0-16.0); LYMPHOCYTES % 10.8 % (20.0-50.0); MEAN CORPUSCULAR HEMOGLOBIN 36.3 pg (28.0-32.0); MEAN CORPUSCULAR VOLUME 106.4 fL (81.0-99.0); MEAN PLATELET VOLUME 8.4 fl (7.4-10.4); MONOCYTES % 10.1 % (2.0-8.0); NEUTROPHILS % 76.6 % (40.0-76.0); PLATELET 96 x1000/uL (130-400); RED BLOOD CELL COUNT 2.57 mill/uL (4.2-5.4); RED CELL DISTRIBUTION WIDTH 26.8 % (11.6-14.6)
[2022-01-09 07:46] LABS: CHLORIDE 101 mEq/L (98-107)
[2022-01-09 08:00] VITALS: BP 103/57
[2022-01-09] MEDS: FOLIC ACID 1MG TABLET PO SCH (09:25)
[2022-01-09] MEDS: POTASSIUM CHLORIDE 20MEQ TABLET SR PO SCH (09:25)
[2022-01-09] MEDS: FUROSEMIDE 40MG/4 ML UDC PO SCH ×2 (09:25→18:15)
[2022-01-09] MEDS: APIXABAN 2.5 MG TABLET PO SCH ×2 (09:25→18:15)
[2022-01-09] MEDS: ACETAMINOPHEN 325MG TABLET PO PRN (09:25)
[2022-01-09] MEDS: MIDODRINE HCL 5MG TABLET PO SCH ×3 (09:26→18:16)
[2022-01-09] MEDS: LEVOFLOXACIN 500MG TABLET PO SCH (11:51)
[2022-01-09] MEDS ORDERED: POTASSIUM CHLORIDE 20MEQ TABLET SR PO NR (12:15)
[2022-01-09 20:00] VITALS: BP 121/70
[2022-01-10] MEDS: LEVOTHYROXINE SODIUM 100MCG TABLET PO SCH (06:12)
[2022-01-10 07:03] LABS: CHLORIDE 103 mEq/L (98-107)
[2022-01-10 07:07] LABS: BASOPHILS % 1.1 % (0.0-2.0); EOSINOPHILS % 2.1 % (0.0-5.0); HEMATOCRIT. 25.8 % (36.0-48.0); LYMPHOCYTES % 8.9 % (20.0-50.0); MEAN CORPUSCULAR HEMOGLOBIN 36.9 pg (28.0-32.0); MEAN CORPUSCULAR VOLUME 106.1 fL (81.0-99.0); MEAN PLATELET VOLUME 7.9 fl (7.4-10.4); MONOCYTES % 10.8 % (2.0-8.0); NEUTROPHILS % 77.1 % (40.0-76.0); PLATELET 86 x1000/uL (130-400); RED BLOOD CELL COUNT 2.43 mill/uL (4.2-5.4); RED CELL DISTRIBUTION WIDTH 26.3 % (11.6-14.6)
[2022-01-10 08:00] VITALS: BP 109/55
[2022-01-10] MEDS: FUROSEMIDE 40MG/4 ML UDC PO SCH ×2 (08:22→17:12)
[2022-01-10] MEDS: FOLIC ACID 1MG TABLET PO SCH (08:22)
[2022-01-10] MEDS: MIDODRINE HCL 5MG TABLET PO SCH ×3 (08:23→17:12)
[2022-01-10] MEDS: POTASSIUM CHLORIDE 20MEQ TABLET SR PO SCH (08:23)
[2022-01-10] MEDS: APIXABAN 2.5 MG TABLET PO SCH ×2 (08:23→17:12)
[2022-01-10] MEDS ORDERED: POTASSIUM CHLORIDE 20MEQ TABLET SR PO SCH ×2 (11:43→18:00)
[2022-01-10 20:00] VITALS: BP 101/68
[2022-01-11 06:03] LABS: BASOPHILS % 1.1 % (0.0-2.0); EOSINOPHILS % 3.4 % (0.0-5.0); HEMATOCRIT. 26.2 % (36.0-48.0); MEAN CORPUSCULAR HEMOGLOBIN 36.4 pg (28.0-32.0); MEAN CORPUSCULAR VOLUME 106.4 fL (81.0-99.0); MEAN PLATELET VOLUME 8.2 fl (7.4-10.4); MONOCYTES % 14.5 % (2.0-8.0); PLATELET 84 x1000/uL (130-400); RED BLOOD CELL COUNT 2.46 mill/uL (4.2-5.4); RED CELL DISTRIBUTION WIDTH 27.4 % (11.6-14.6)
[2022-01-11] MEDS: LEVOTHYROXINE SODIUM 100MCG TABLET PO SCH (06:43)
[2022-01-11 07:16] LABS: CHLORIDE 105 mEq/L (98-107)
[2022-01-11 07:58] VITALS: BP 104/65
[2022-01-11] MEDS: POTASSIUM CHLORIDE 20MEQ TABLET SR PO SCH (09:29)
[2022-01-11] MEDS: MIDODRINE HCL 5MG TABLET PO SCH ×3 (09:29→16:55)
[2022-01-11] MEDS: APIXABAN 2.5 MG TABLET PO SCH ×2 (09:29→16:55)
[2022-01-11] MEDS: FUROSEMIDE 40MG/4 ML UDC PO SCH ×2 (09:29→16:55)
[2022-01-11] MEDS: FOLIC ACID 1MG TABLET PO SCH (09:30)
[2022-01-11 19:10] LABS: 25-HYDROXY VITAMIN D3 26 ng/mL (.)
[2022-01-11 19:46] VITALS: BP 105/62
[2022-01-12] MEDS: LEVOTHYROXINE SODIUM 100MCG TABLET PO SCH (06:25)
[2022-01-12 08:00] VITALS: BP 123/56
[2022-01-12] MEDS: FOLIC ACID 1MG TABLET PO SCH (08:54)
[2022-01-12] MEDS: APIXABAN 2.5 MG TABLET PO SCH ×2 (08:54→16:08)
[2022-01-12] MEDS: FUROSEMIDE 40MG/4 ML UDC PO SCH ×2 (08:54→16:08)
[2022-01-12] MEDS: POTASSIUM CHLORIDE 20MEQ TABLET SR PO SCH (08:54)
[2022-01-12] MEDS: MIDODRINE HCL 5MG TABLET PO SCH ×3 (08:55→16:08)
[2022-01-12] MEDS: ACETAMINOPHEN 325MG TABLET PO PRN (10:12)
[2022-01-12 20:00] VITALS: BP 118/69
[2022-01-13] MEDS: LEVOTHYROXINE SODIUM 100MCG TABLET PO SCH (06:03)
[2022-01-13] MEDS ORDERED: POTA-204 PO (07:04)
[2022-01-13] MEDS ORDERED: FURO-151 MT (07:04)
[2022-01-13] MEDS ORDERED: LEVO100T9 PO (07:04)
[2022-01-13] MEDS ORDERED: APIX2.5T PO (07:04)
[2022-01-13 08:00] VITALS: BP 104/56
[2022-01-13] MEDS: APIXABAN 2.5 MG TABLET PO SCH (09:24)
[2022-01-13] MEDS: FUROSEMIDE 40MG/4 ML UDC PO SCH (09:24)
[2022-01-13] MEDS: MIDODRINE HCL 5MG TABLET PO SCH (09:24)
[2022-01-13] MEDS: FOLIC ACID 1MG TABLET PO SCH (09:24)
[2022-01-13] MEDS: POTASSIUM CHLORIDE 20MEQ TABLET SR PO SCH (09:25)
[2022-01-13 10:03] VITALS: BP 104/56
== END 2022-01-13 11:37 | disposition home health service (06) | DRG 91 ==
PROVIDERS: ADMIT Physical Medicine & Rehabilitation Spinal Cord Injury Medicine; ATTEND Internal Medicine
DX: G92.8 Other toxic encephalopathy (principal); E43 Unspecified severe protein-calorie malnutrition; G82.50 Quadriplegia, unspecified; N17.9 Acute kidney failure, unspecified; E87.1 Hypo-osmolality and hyponatremia; K56.609 Unspecified intestinal obstruction, unspecified as to partial versus complete obstruction; E53.8 Deficiency of other specified B group vitamins; R26.9 Unspecified abnormalities of gait and mobility; E03.9 Hypothyroidism, unspecified; R53.81 Other malaise; D64.9 Anemia, unspecified; D72.829 Elevated white blood cell count, unspecified; K74.60 Unspecified cirrhosis of liver; R13.10 Dysphagia, unspecified; R47.1 Dysarthria and anarthria; D69.6 Thrombocytopenia, unspecified; E78.00 Pure hypercholesterolemia, unspecified; E87.6 Hypokalemia; I48.91 Unspecified atrial fibrillation; I10 Essential (primary) hypertension; Z93.3 Colostomy status; Z90.49 Acquired absence of other specified parts of digestive tract; Z68.27 Body mass index [BMI] 27.0-27.9, adult
CPT/HCPCS: 36415; 80048; 80053; 82140; 82306; 82607; 82728; 82746; 83540; 83550; 84134; 84443; 85025; 92523; 92610; 93970; 97110; 97112; 97116; 97150; 97162; 97166; 97530; 97535; J1940